=== PATIENT | male | born 1945 | race Two or more races ===

== ENCOUNTER 2017-01-30 15:26 | Inpatient (IN) | payer MEDICARE ==
[~2017-01-30] VITALS: Ht 193 cm; Wt 98.2 kg
[~2017-01-30 15:26] MED LIST: ALBU0.424 IH; AMLO-512 PO; ASPI81 PO; BUDE10.2 IH; CHOL200016 PO; LEVO500 PO; LORA0.5T2 PO; MOME17N NASAL; PRED20 PO; PROMVCC120 PO
[2017-01-30] MEDS ORDERED: ALBUTEROL SULFATE 2.5 MG/0.5 ML NEB SOLUTION NEB ONE (16:30)
[2017-01-30] MEDS ORDERED: IPRATROPIUM BROMIDE 0.5 MG/2.5 ML NEB SOLUTION NEB ONE (16:30)
[2017-01-30] MEDS ORDERED: AUD NEB (16:39)
[2017-01-30 16:52] LABS: HEMATOCRIT 30.9 % (41-53); MEAN CORPUSCULAR HEMOGLOBIN 30.5 pg (26.0-34.0); MEAN CORPUSCULAR HGB CONC 32.4 G/dL (31.0-37.0); MEAN CORPUSCULAR VOLUME 94 fL (80-100); PLATELET COUNT (AUTO) 107 K/uL (150-450); RED BLOOD CELL COUNT(AUTO) 3.29 MIL/uL (4.50-5.90); RED CELL DISTRIBUTION WIDTH 16.6 % (11.5-14.5); WHITE BLOOD COUNT (AUTO) 26.7 K/uL (4.5-11.0)
[2017-01-30 17:20] LABS: BAND NEUTROPHILS % (MANUAL) 3 % (1-5); EOSINOPHILS % (MANUAL) 1 % (1-6); LYMPHOCYTES % (MANUAL) 57 % (22-44); REACTIVE LYMPHOCYTES 21 % (0-0); TOTAL CELLS COUNTED 100
[2017-01-30 17:35] LABS: ANION GAP 6 mmol/L (8-16); CALCIUM, TOTAL 8.4 mg/dL (8.8-10.5); CARBON DIOXIDE 29 mmol/L (22-29); CHLORIDE 100 mmol/L (98-107); CREATININE 1.52 mg/dL (0.60-1.30); GLOMERULAR FILTR. RATE CALC 45 mL/min (>60); POTASSIUM 5.6 mmol/L (3.5-5.1); SODIUM SERUM 135 mmol/L (136-145); UREA NITROGEN, BLOOD 43 mg/dL (7-18)
[2017-01-30 17:40] LABS: ALANINE AMINOTRANSFERASE 24 U/L (12-78); ALBUMIN 3.5 g/dL (3.4-5.0); ASPARTATE AMINOTRANSFERASE 19 U/L (15-37); BILIRUBIN,TOTAL 0.3 mg/dL (0.1-1.0); CREATINE KINASE, TOTAL 29 U/L (39-308); TOTAL PROTEIN, SERUM 6.4 g/dL (6.4-8.2)
[2017-01-30 18:45] VITALS: BP 126/74
[2017-01-30 20:30] VITALS: BP 128/65
[2017-01-30] MEDS ORDERED: ACETAMINOPHEN 325 MG TABLET PO PRN (20:45)
[2017-01-30] MEDS ORDERED: MAGNESIUM HYDROXIDE SUSPENSION 30 ML UDCUP PO PRN (20:45)
[2017-01-30] MEDS ORDERED: OxyCODONE HCL/ACETAMINOPHEN 5-325 MG TABLET PO PRN (20:45)
[2017-01-30] MEDS ORDERED: SODIUM CHLORIDE 0.9% 1,000 ML IV ONE (21:00)
[2017-01-30] MEDS: DOCUSATE SODIUM 100 MG CAPSULE PO SCH (21:59)
[2017-01-30] MEDS: GuaiFENesin/CODEINE [SUGAR FREE] 200-20MG/10 ML SYRUP UDCUP PO PRN (22:28)
[2017-01-30] MEDS: LORazepam 1 MG TABLET PO PRN (22:29)
[2017-01-30 23:44] VITALS: BP 125/58
[2017-01-31] MEDS: HEPARIN SODIUM,PORCINE 5,000 UNITS/ML VIAL SQ SCH ×3 (00:35→16:29)
[2017-01-31] MEDS: IPRATROPIUM BROMIDE 0.5 MG/2.5 ML NEB SOLUTION NEB PRN ×4 (03:24→14:21)
[2017-01-31] MEDS: ALBUTEROL SULFATE 2.5 MG/0.5 ML NEB SOLUTION NEB PRN ×4 (03:24→14:21)
[2017-01-31 04:10] VITALS: BP 119/62
[2017-01-31 06:19] LABS: HEMOGLOBIN 9.3 g/dL (13.5-17.5); MEAN CORPUSCULAR HEMOGLOBIN 29.3 pg (26.0-34.0); MEAN CORPUSCULAR HGB CONC 29.8 G/dL (31.0-37.0); MEAN CORPUSCULAR VOLUME 98 fL (80-100); PLATELET COUNT (AUTO) 117 K/uL (150-450); RED BLOOD CELL COUNT(AUTO) 3.16 MIL/uL (4.50-5.90); RED CELL DISTRIBUTION WIDTH 16.9 % (11.5-14.5)
[2017-01-31 06:38] LABS: ANION GAP 4 mmol/L (8-16); CALCIUM, TOTAL 8.1 mg/dL (8.8-10.5); CARBON DIOXIDE 32 mmol/L (22-29); CHLORIDE 103 mmol/L (98-107); CREATININE 1.18 mg/dL (0.60-1.30); GLOMERULAR FILTR. RATE CALC > 60 mL/min (>60); POTASSIUM 4.4 mmol/L (3.5-5.1); SODIUM SERUM 139 mmol/L (136-145); UREA NITROGEN, BLOOD 40 mg/dL (7-18)
[2017-01-31 07:26] VITALS: BP 128/64
[2017-01-31 07:42] LABS: LYMPHOCYTES % (MANUAL) 2 % (22-44); REACTIVE LYMPHOCYTES 94 % (0-0); TOTAL CELLS COUNTED 100
[2017-01-31 07:55] LABS: WBC MORPHOLOGY SMUDGE CELLS PRESENT
[2017-01-31 07:58] LABS: WHITE BLOOD COUNT (AUTO) 69.1 K/uL (4.5-11.0)
[2017-01-31] MEDS: ASPIRIN 81 MG CHEWABLE TABLET PO SCH (08:47)
[2017-01-31] MEDS: DOCUSATE SODIUM 100 MG CAPSULE PO SCH ×2 (08:47→20:19)
[2017-01-31] MEDS: PANTOPRAZOLE SODIUM 40 MG DR TABLET PO SCH (08:47)
[2017-01-31] MEDS: MethylPREDNISolone SOD SUCC 40 MG/ML VIAL IVP SCH (11:20)
[2017-01-31] MEDS: AMOX TR/POT CLAV 875 MG/125 MG TABLET PO SCH ×2 (11:20→20:18)
[2017-01-31 12:23] VITALS: BP 113/50
[2017-01-31] MEDS ORDERED: SODIUM CHLORIDE 0.9% 100 ML ONE (12:44)
[2017-01-31] MEDS ORDERED: IOVERSOL 350 MG/ML 100 ML VIAL ONE (12:44)
[2017-01-31 16:05] VITALS: BP 118/63
[2017-01-31 19:23] VITALS: BP 126/63
[2017-01-31] MEDS: IPRATROPIUM BROMIDE 0.5 MG/2.5 ML NEB SOLUTION NEB SCH (19:50)
[2017-01-31] MEDS: ALBUTEROL SULFATE 2.5 MG/0.5 ML NEB SOLUTION NEB SCH (19:50)
[2017-01-31 20:06] LABS: ABG A-A DIFF O2 28.3 mmHg (10-20.0); ABG BASE EXCESS 7.6 mmol/L (-2.0-3.0); ABG HCO3 30.3 mmol/L (22.0-26.0); ABG OXYHEMOGLOBIN 89.8 % (94.0-100.0); ABG PCO2 51 mmHg (35-45); TEMPERATURE, FAHRENHEIT, BG 98.4 FAHREN (96.0-98.6)
[2017-01-31 20:07] LABS: ALLEN TEST, BLOOD GAS Positive
[2017-01-31] MEDS: GuaiFENesin/CODEINE [SUGAR FREE] 200-20MG/10 ML SYRUP UDCUP PO PRN (22:04)
[2017-01-31] MEDS: LORazepam 1 MG TABLET PO PRN (22:04)
[2017-01-31 23:25] VITALS: BP 120/63
[2017-02-01] MEDS: HEPARIN SODIUM,PORCINE 5,000 UNITS/ML VIAL SQ SCH ×4 (00:29→23:56)
[2017-02-01] MEDS: ALBUTEROL SULFATE 2.5 MG/0.5 ML NEB SOLUTION NEB SCH ×4 (02:11→20:30)
[2017-02-01] MEDS: IPRATROPIUM BROMIDE 0.5 MG/2.5 ML NEB SOLUTION NEB SCH ×4 (02:11→20:30)
[2017-02-01 04:09] VITALS: BP 118/65
[2017-02-01 06:46] LABS: HEMATOCRIT 31.1 % (41-53); HEMOGLOBIN 9.3 g/dL (13.5-17.5); MEAN CORPUSCULAR HEMOGLOBIN 29.5 pg (26.0-34.0); MEAN CORPUSCULAR HGB CONC 29.9 G/dL (31.0-37.0); MEAN CORPUSCULAR VOLUME 99 fL (80-100); PLATELET COUNT (AUTO) 117 K/uL (150-450); RED BLOOD CELL COUNT(AUTO) 3.16 MIL/uL (4.50-5.90); RED CELL DISTRIBUTION WIDTH 17.1 % (11.5-14.5)
[2017-02-01 07:00] LABS: WHITE BLOOD COUNT (AUTO) 84.8 K/uL (4.5-11.0)
[2017-02-01 07:24] LABS: ALANINE AMINOTRANSFERASE 21 U/L (12-78); ALBUMIN 3.2 g/dL (3.4-5.0); ANION GAP 6 mmol/L (8-16); ASPARTATE AMINOTRANSFERASE 12 U/L (15-37); BILIRUBIN,TOTAL 0.2 mg/dL (0.1-1.0); CALCIUM, TOTAL 8.4 mg/dL (8.8-10.5); CARBON DIOXIDE 33 mmol/L (22-29); CHLORIDE 100 mmol/L (98-107); GLOMERULAR FILTR. RATE CALC > 60 mL/min (>60); POTASSIUM 4.5 mmol/L (3.5-5.1); SODIUM SERUM 139 mmol/L (136-145); TOTAL PROTEIN, SERUM 5.7 g/dL (6.4-8.2); UREA NITROGEN, BLOOD 32 mg/dL (7-18)
[2017-02-01 07:56] VITALS: BP 131/70
[2017-02-01] MEDS: MethylPREDNISolone SOD SUCC 40 MG/ML VIAL IVP SCH (08:02)
[2017-02-01] MEDS: AMOX TR/POT CLAV 875 MG/125 MG TABLET PO SCH ×2 (08:03→20:29)
[2017-02-01] MEDS: ASPIRIN 81 MG CHEWABLE TABLET PO SCH (08:03)
[2017-02-01] MEDS: PANTOPRAZOLE SODIUM 40 MG DR TABLET PO SCH (08:04)
[2017-02-01] MEDS: DOCUSATE SODIUM 100 MG CAPSULE PO SCH ×2 (08:04→20:29)
[2017-02-01 08:19] LABS: LYMPHOCYTES % (MANUAL) 2 % (22-44); REACTIVE LYMPHOCYTES 90 % (0-0); TOTAL CELLS COUNTED 100; WBC MORPHOLOGY SMUDGE CELLS PRESENT
[2017-02-01 11:20] VITALS: BP 120/51
[2017-02-01] MEDS: GuaiFENesin/CODEINE [SUGAR FREE] 200-20MG/10 ML SYRUP UDCUP PO PRN (15:28)
[2017-02-01 15:49] VITALS: BP 127/73
[2017-02-01 19:55] VITALS: BP 112/67
[2017-02-02] VITALS (7 sets, daily range): BP systolic 117–129; BP diastolic 59–78
[2017-02-02] MEDS: ALBUTEROL SULFATE 2.5 MG/0.5 ML NEB SOLUTION NEB SCH ×4 (02:24→20:43)
[2017-02-02] MEDS: IPRATROPIUM BROMIDE 0.5 MG/2.5 ML NEB SOLUTION NEB SCH ×4 (02:24→20:43)
[2017-02-02 06:01] LABS: HEMATOCRIT 32.5 % (41-53); HEMOGLOBIN 9.6 g/dL (13.5-17.5); MEAN CORPUSCULAR HEMOGLOBIN 29.4 pg (26.0-34.0); MEAN CORPUSCULAR HGB CONC 29.6 G/dL (31.0-37.0); MEAN CORPUSCULAR VOLUME 99 fL (80-100); PLATELET COUNT (AUTO) 127 K/uL (150-450); RED BLOOD CELL COUNT(AUTO) 3.28 MIL/uL (4.50-5.90); RED CELL DISTRIBUTION WIDTH 16.9 % (11.5-14.5)
[2017-02-02 06:22] LABS: ANION GAP 4 mmol/L (8-16); CALCIUM, TOTAL 8.4 mg/dL (8.8-10.5); CARBON DIOXIDE 34 mmol/L (22-29); CHLORIDE 100 mmol/L (98-107); GLOMERULAR FILTR. RATE CALC > 60 mL/min (>60); POTASSIUM 4.4 mmol/L (3.5-5.1); SODIUM SERUM 138 mmol/L (136-145); UREA NITROGEN, BLOOD 32 mg/dL (7-18)
[2017-02-02 06:36] LABS: WHITE BLOOD COUNT (AUTO) 119.6 K/uL (4.5-11.0)
[2017-02-02] MEDS: HEPARIN SODIUM,PORCINE 5,000 UNITS/ML VIAL SQ SCH ×3 (08:38→23:20)
[2017-02-02] MEDS: MethylPREDNISolone SOD SUCC 40 MG/ML VIAL IVP SCH (08:39)
[2017-02-02] MEDS: AMOX TR/POT CLAV 875 MG/125 MG TABLET PO SCH ×2 (08:39→21:16)
[2017-02-02] MEDS: DOCUSATE SODIUM 100 MG CAPSULE PO SCH ×2 (08:39→21:16)
[2017-02-02] MEDS: ASPIRIN 81 MG CHEWABLE TABLET PO SCH (08:39)
[2017-02-02] MEDS: PANTOPRAZOLE SODIUM 40 MG DR TABLET PO SCH (08:40)
[2017-02-02 11:15] LABS: LYMPHOCYTES % (MANUAL) 97 % (22-44); TOTAL CELLS COUNTED 100
[2017-02-02 11:16] LABS: RBC MORPHOLOGY COMMENT NORMAL RBC MORPH
[2017-02-02] MEDS: GuaiFENesin/CODEINE [SUGAR FREE] 200-20MG/10 ML SYRUP UDCUP PO PRN (11:26)
[2017-02-02] MEDS: LORazepam 1 MG TABLET PO PRN (23:27)
[2017-02-03] MEDS: ALBUTEROL SULFATE 2.5 MG/0.5 ML NEB SOLUTION NEB SCH ×4 (02:14→19:50)
[2017-02-03] MEDS: IPRATROPIUM BROMIDE 0.5 MG/2.5 ML NEB SOLUTION NEB SCH ×4 (02:14→19:50)
[2017-02-03 05:08] VITALS: BP 125/71
[2017-02-03 07:28] VITALS: BP 121/72
[2017-02-03] MEDS: MethylPREDNISolone SOD SUCC 40 MG/ML VIAL IVP SCH (10:30)
[2017-02-03] MEDS: ASPIRIN 81 MG CHEWABLE TABLET PO SCH (10:31)
[2017-02-03] MEDS: HEPARIN SODIUM,PORCINE 5,000 UNITS/ML VIAL SQ SCH ×3 (10:31→23:48)
[2017-02-03] MEDS: AMOX TR/POT CLAV 875 MG/125 MG TABLET PO SCH ×2 (10:31→20:56)
[2017-02-03] MEDS: PANTOPRAZOLE SODIUM 40 MG DR TABLET PO SCH (10:31)
[2017-02-03] MEDS: DOCUSATE SODIUM 100 MG CAPSULE PO SCH ×2 (10:31→20:56)
[2017-02-03 11:33] VITALS: BP 123/59
[2017-02-03 15:25] VITALS: BP 130/70
[2017-02-03 19:14] VITALS: BP 118/72
[2017-02-03] MEDS: GuaiFENesin/CODEINE [SUGAR FREE] 200-20MG/10 ML SYRUP UDCUP PO PRN (22:03)
[2017-02-03] MEDS: LORazepam 1 MG TABLET PO PRN (22:03)
[2017-02-03 23:06] VITALS: BP 117/68
[2017-02-04] MEDS: ALBUTEROL SULFATE 2.5 MG/0.5 ML NEB SOLUTION NEB SCH ×2 (02:55→08:30)
[2017-02-04] MEDS: IPRATROPIUM BROMIDE 0.5 MG/2.5 ML NEB SOLUTION NEB SCH ×2 (02:55→08:30)
[2017-02-04 04:35] VITALS: BP 126/70
[2017-02-04 07:31] VITALS: BP 134/64
[2017-02-04] MEDS: PANTOPRAZOLE SODIUM 40 MG DR TABLET PO SCH (09:27)
[2017-02-04] MEDS: DOCUSATE SODIUM 100 MG CAPSULE PO SCH (09:27)
[2017-02-04] MEDS: ASPIRIN 81 MG CHEWABLE TABLET PO SCH (09:27)
[2017-02-04] MEDS: AMOX TR/POT CLAV 875 MG/125 MG TABLET PO SCH (09:27)
[2017-02-04] MEDS: HEPARIN SODIUM,PORCINE 5,000 UNITS/ML VIAL SQ SCH (09:28)
[2017-02-04] MEDS: MethylPREDNISolone SOD SUCC 40 MG/ML VIAL IVP SCH (09:37)
[2017-02-04 11:09] VITALS: BP 139/75
== END 2017-02-04 12:00 | disposition left against medical advice (07) | DRG 191 ==
LOC: EMS 15:28 → AHU 17:55 → 5N 21:33
PROVIDERS: ADMIT Internal Medicine; ATTEND Internal Medicine
DX: J44.1 Chronic obstructive pulmonary disease with (acute) exacerbation (principal); C91.10 Chronic lymphocytic leukemia of B-cell type not having achieved remission; N17.9 Acute kidney failure, unspecified; J96.11 Chronic respiratory failure with hypoxia; E44.0 Moderate protein-calorie malnutrition; Z66 Do not resuscitate; R91.8 Other nonspecific abnormal finding of lung field; E87.5 Hyperkalemia; F17.210 Nicotine dependence, cigarettes, uncomplicated; I48.91 Unspecified atrial fibrillation; Z82.49 Family history of ischemic heart disease and other diseases of the circulatory system; Z99.81 Dependence on supplemental oxygen; Z87.01 Personal history of pneumonia (recurrent); Z79.82 Long term (current) use of aspirin; Z79.899 Other long term (current) drug therapy; Z68.26 Body mass index [BMI] 26.0-26.9, adult
CPT/HCPCS: 71020; 71260; 82805; 83735; 87081; 93005; 94640; 97161; 99285; J1644; J2920; J7030; J7050